=== PATIENT | female | born 1960 | race Caucasian/White ===

== ENCOUNTER 2019-01-02 09:43 | Inpatient (IN) | payer BC, SELFPAY ==
[2019-01-02 10:44] LABS: #Basophils 0.1 thou/uL (0.0-0.2); #Eosinphils 0.1 thou/uL (0.0-0.7); #Lymphocytes 2.5 thou/uL (1.20-3.40); #Monocytes 0.5 thou/uL (0.11-0.59); #Neutrophils 10.4 thou/uL (1.40-6.50); %Basophils 0.6 % (0.0-1.0); %Eosinophils 0.4 % (0.0-10.0); %Lymphocytes 18.3 % (21.0-51.0); %Monocytes 3.5 % (0.0-10.0); %Neutrophils 77.3 % (42.0-75.0); Hemoglobin 14.6 g/dL (12.0-16.0); Mean Corpuscular HGB CONC 33.6 g/dL (32.0-36.0); Mean Corpuscular Hemoglobin 31.7 pg (27.0-31.0); Mean Corpuscular Volume 94.5 fL (78.0-98.0); Mean Platelet Volume 7.6 fL (7.4-10.4); Platelet Count 389 thou/uL (130-400); RBC Distribution Width 11.8 % (11.5-14.5); Red Blood Cell (RBC) Count 4.62 mill/uL (4.20-5.40); White Blood Cell (WBC) Count 13.5 thou/uL (4.8-10.8)
--- NOTE | 2019-01-02 11:01 | CT ---
BRAIN CT WITHOUT IV CONTRAST: History: Dizziness, possible seizure, trip and fall one week ago. FINDINGS: No focal mass or midline shift. Right maxillary sinus focal mucosal disease. The mastoids are clear. No mass or midline shift. No intra or extraaxial hemorrhage. IMPRESSION: No significant acute intracranial process. Right maxillary sinus mucosal disease. POS: TPC
[2019-01-02 11:24] LABS: INR-International Normal Ratio 0.9; PTT 26.5 SEC (22.9-36.1); Prothrombin Time 11.9 SEC (12.0-14.7)
[2019-01-02 11:58] LABS: ALT (SGPT) 34 U/L (8-55); AST (SGOT) 55 U/L (5-34); Albumin 4.6 g/dL (3.5-5.0); Alkaline Phosphatase 104 U/L (40-150); Anion Gap 20 mmol/L (10-20); BUN (Urea Nitrogen) 16 mg/dL (9.8-20.1); Bilirubin, Total 0.5 mg/dL (0.2-1.2); Calc. Creatinine Clearance 0 mL/min (70-130); Calcium 9.3 mg/dL (7.8-10.44); Carbon Dioxide 19 mmol/L (22-29); Chloride 102 mmol/L (98-107); Estimated GFR-MDRD 73; Globulin 3.1 g/dL (2.4-3.5); Glucose 183 mg/dL (70-105); Potassium 4.6 mmol/L (3.5-5.1); Protein, Total 7.7 g/dL (6.0-8.3); Sodium 136 mmol/L (136-145)
[2019-01-02] MEDS ORDERED: Zolpidem Tartrate 5 MG TAB PO PRN (13:18)
[2019-01-02] MEDS ORDERED: Ondansetron ODT 4 MG TAB PO PRN (13:18)
[2019-01-02] MEDS ORDERED: Acetaminophen 325 MG TAB PO PRN (13:18)
[2019-01-02] MEDS ORDERED: Ondansetron PF 4 MG/2 ML Vial ONE (13:37)
--- NOTE | 2019-01-02 13:48 | RAD ---
FEXAM: Single view of the chest COMPARISON: None FINDINGS: Single view of the chest shows a normal sized cardiomediastinal silhouette. Atherosclerotic calcifications are seen in the aorta. There is no evidence of consolidation, mass, or pleural effusi on. The bones are unremarkable. Surgical clips are seen in the upper abdomen. IMPRESSION: No evidence of acute cardiopulmonary disease
--- NOTE | 2019-01-02 14:30 | HP ---
CHIEF COMPLAINT/HISTORY OF PRESENT ILLNESS: [facility] Call admission for Sound. The patient fell this morning on her face. She had a bloody nose and bloody lip. She cleaned herself up, went to work and it happened again. She was at school. 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 She left. She continued to have lightheaded and near passing out spell. She thought they were seizures. She called a co-worker. She was taken to the emergency room and found to have AV dissociation on electrocardiogram. No chest pain. No acute shortness of breath. No sweats. PAST MEDICAL HISTORY: Pertinent only for hypothyroidism, currently on levothyroxine 100 mcg a day. ALLERGIES: SHE IS ALLERGIC TO AMPICILLIN AND SULFA. PAST SURGICAL HISTORY: She had Hodgkin's at 17 years of age, had exploratory lap and upper mantle radiation at that time. FAMILY HISTORY: Father has glaucoma. There are multiple members of the family with hypertension and dyslipidemia. SOCIAL HISTORY: She is . Full code status. at the bedside, next of kin. is deaf, sign language only. She does not smoke. She drinks 4 glasses of white wine at night, chardonnay. REVIEW OF SYSTEMS: GENERAL: . No headaches, dizziness or fainting. EYES: No double vision, blurred vision, or flashing lights. EARS, NOSE, AND THROAT: She had no ear pain or drainage. She has nosebleed with a fall this morning. It is resolved. No trouble swallowing. CARDIAC: She states she has chest tightness most of the time for many years. No orthopnea or paroxysmal nocturnal dyspnea. RESPIRATIONS: No cough, wheezing, or asthma. GASTROINTESTINAL: No nausea, vomiting, diarrhea, constipation, or abdominal pain. GENITOURINARY: No hematuria, dysuria, or nocturia. She does have stress incontinence. MUSCULOSKELETAL: No pain or swelling in her arms or legs. NEUROLOGIC: No history of stroke, seizures, or focal weakness. PSYCHIATRIC: No anxiety or depression. SKIN: No bruising, bleeding, or rash. HEME/LYMPH: No tender or swollen lymph nodes in axilla, inguinal, or cervical area. PHYSICAL EXAMINATION: GENERAL: She is alert, pleasant, cooperative lady with a transcutaneous pacemaker on. VITAL SIGNS: Blood pressure ranges in the 130/50 range, pulse is 47 to 67, respirations 18, and room air sat 99%. HEAD, EYES, EARS, NOSE, AND THROAT: Reveals pupils equal, round, and reactive to light. Extraocular movements are intact. Sclerae are white. Tympanic membranes clear. Nose has dried blood in it. Mouth has abrasions on her upper and lower lip with dry blood. Mouth is wet. NECK: No jugular venous distention, adenopathy, or thyromegaly. CHEST: Clear to auscultation and percussion. HEART: Had irregular rate and rhythm. No murmurs and no gallops. ABDOMEN: Soft. Bowel sounds are normal. No hepatosplenomegaly. No masses. No rebound. EXTREMITIES: Reveal no cyanosis, clubbing, or edema. SKIN: Warm and dry except for the lesions on her mouth. PULSES: Carotid, radial, femoral, and dorsalis pedis pulses intact. LYMPHATIC SURVEY: No tender or swollen lymph nodes in axilla, inguinal, or cervical area. No petechial lesions. NEUROLOGIC: Cranial nerves 2 through 12 are intact. Deep tendon reflexes symmetric. STUDIES: EKG: AV dissociation with junctional escape, reviewed by me. CT scan of the brain was done for some reason. No acute intracranial abnormality. LABORATORY DATA: CBC: White count 13.5, hemoglobin 14.6, and platelet count 389,000. INR was 0.9. Comprehensive metabolic profile normal except for AST of 55, blood sugar 183, and CO2 of 19. Troponin 0.11. ADMITTING DIAGNOSES: 1. Syncope. 2. Complete atrioventricular dissociation. 3. Hypothyroidism. 4. Abrasions to lip. 5. Remote history of Hodgkin disease. PLAN: 1. Move to Critical Care Unit on transcutaneous pacemaker. 2. Dr. Doshi has been consulted for probable pacemaker placement. Echocardiogram has been ordered. Job ID: [id number] [facility]
[2019-01-02] MEDS ORDERED: Levofloxacin 500 mg/D5W 100 ml Premix Bag ONE (15:07)
[2019-01-02] MEDS ORDERED: Clindamycin/D5W 600 mg/50 ml Premix Bag ONE (15:53)
[2019-01-02] MEDS ORDERED: Midazolam HCl 2 mg/2 ml Vial ONE (16:01)
[2019-01-02] MEDS ORDERED: Vancomycin HCl 500 MG VIAL ONE (16:01)
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
--- NOTE | 2019-01-02 17:40 | RAD ---
FThere are degenerative chest one view: 01/02/2019 5:27 PM HISTORY: Status post pacemaker placement in 58-year-old female COMPARISON: 01/02/2019 1:39 PM FINDINGS: There is a new left subclavian dual lead pacemaker with lead tips overlying the expected locations of right atrial appendage and right ventricle. Cardiac mediastinal silhouette remains normal. No eviden ce of pneumothorax. Lungs remain clear. IMPRESSION: Interval pacemaker placement without pneumothorax.
[2019-01-02 18:00] VITALS: BMI 26.2
--- NOTE | 2019-01-02 18:22 | CCL ---
INDICATION FOR PROCEDURE: This is a 58-year-old female with syncopal episode this morning. Was found to have complete AV heart block with third degree block with bradycardia and syncopal episode. She was advised to undergo dual -chamber pacemaker insertion. This was performed today without difficulties or complications. She was implanted with a dual chamber pacemaker from [employer], an Advisa MRI compatible device with two screw-in leads. On in the atrium and one in the ventricle. The pacemaker was set with the upper r ate of 130 the lower rate was set at 60. There were no difficulties or complications encountered. ADDENDUM: The patient was given 1 mg of IV versed for conscious sedation for the procedure. Throughout the proc edure, she was monitored by an independent observer present for heart rate, blood pressure and O2 sat urations and all remained stable. CC: Brandt Clarke M.D.
[2019-01-02] MEDS ORDERED: Acetaminophen/Codeine 30-300mg Tablet PO PRN ×2 (21:15)
[2019-01-03 05:42] LABS: #Basophils 0.1 thou/uL (0.0-0.2); #Lymphocytes 2.9 thou/uL (1.20-3.40); #Monocytes 1.2 thou/uL (0.11-0.59); #Neutrophils 7.5 thou/uL (1.40-6.50); %Basophils 0.6 % (0.0-1.0); %Eosinophils 0.3 % (0.0-10.0); %Lymphocytes 24.8 % (21.0-51.0); %Monocytes 9.9 % (0.0-10.0); %Neutrophils 64.3 % (42.0-75.0); Hemoglobin 13.9 g/dL (12.0-16.0); Mean Corpuscular HGB CONC 33.6 g/dL (32.0-36.0); Mean Corpuscular Hemoglobin 32.3 pg (27.0-31.0); Mean Corpuscular Volume 95.9 fL (78.0-98.0); Mean Platelet Volume 7.6 fL (7.4-10.4); Platelet Count 331 thou/uL (130-400); RBC Distribution Width 11.6 % (11.5-14.5); White Blood Cell (WBC) Count 11.7 thou/uL (4.8-10.8)
[2019-01-03 05:54] LABS: Anion Gap 13 mmol/L (10-20); BUN (Urea Nitrogen) 16 mg/dL (9.8-20.1); Calc. Creatinine Clearance 79 mL/min (70-130); Calcium 9.6 mg/dL (7.8-10.44); Carbon Dioxide 26 mmol/L (22-29); Chloride 104 mmol/L (98-107); Estimated GFR-MDRD 76; Glucose 108 mg/dL (70-105); Potassium 4.2 mmol/L (3.5-5.1); Sodium 139 mmol/L (136-145)
--- NOTE | 2019-01-03 06:02 | PDOC.CTH ---
Cardiology Progress Note - Objective Vital Signs Temp Pulse Resp BP Pulse Ox 01/03/19 03:25 97.9 F 104 H 16 132/73 94 L 01/03/19 00:05 110 H 20 136/70 01/02/19 20:23 99.3 F 119 H 20 172/85 H 96 01/02/19 20:00 96 01/02/19 18:05 126 H 160/66 H Weight 139 lb 1.6 oz 01/01/19 01/02/19 01/03/19 06:59 06:59 06:59 Intake Total 400 Output Total 1350 Balance -950 - Physical Examination General/Neuro: alert & oriented x3, NAD Neck: carotid US brisk, no JVD present Lungs: CTA, unlabored respirations Heart: PMI normal, RRR Abdomen: NT/ND, soft Extremities: + femoral B - Labs Result Diagrams: 01/03/19 04:51 01/03/19 04:51 Troponin/CKMB Troponin I 0.011 ng/mL (< 0.028) 01/02/19 10:20 - Assessment/Plan 3rd degree AVB Severe Severe AI Moderate to severe MR Pt underwent successful pacer implant yesterday Doing well Pt. seen, CXR reviewed. Site looks good. CXR: no pneumo or hemothorax. Leads in good position. [email or web address]
[2019-01-03] MEDS ORDERED: Nitroglycerin 0.4 MG TAB (25 Tab Bottle) PO PRN (06:53)
[2019-01-03] MEDS ORDERED: hydrALAZINE 20 MG/ML VIAL SLOW IVP PRN (06:54)
[2019-01-03 07:45] LABS: Magnesium 2.5 mg/dL (1.6-2.6); Phosphorus 4.3 mg/dL (2.3-4.7)
[2019-01-03] MEDS ORDERED: Communication Order-Pharmacy FS SCH (09:45)
[2019-01-03] MEDS ORDERED: Mag-Al 1200 mg/1200 mg/30 ML UDCUP PO PRN (09:48)
[2019-01-03] MEDS: Sodium Chloride 0.9% 1,000 ML IV SCH ×2 (10:32→21:50)
[2019-01-03] MEDS: Eucerin (Mineral Oil/Petrolatum,White) 30 gm Jar TOP SCH ×2 (10:39→21:50)
[2019-01-03] MEDS ORDERED: diphenhydrAMINE 25 MG CAP PO PRN (14:00)
[2019-01-03] MEDS: predniSONE 20 MG TAB PO SCH ×2 (14:48→21:49)
--- NOTE | 2019-01-03 17:23 | CON ---
DATE OF CONSULTATION: SUBJECTIVE: Ms. Hickman is doing well. She has no recurrent episodes of syncope. Prior to pacemaker implantation, she had 6 episodes of syncope. These have resolved. Chest x-ray did not suggest a pneumothorax. OBJECTIVE: VITAL SIGNS: Blood pressure 146/80, pulse 98, temperature 98.3. LUNGS: Clear to auscultation. HEART: Regular rate and rhythm with 2/6 systolic ejection murmur. ABDOMEN: Soft, nontender, and nondistended. EXTREMITIES: No edema. IMPRESSION: 1. Sick sinus syndrome, status post pacemaker. 2. Severe aortic stenosis. 3. Severe aortic insufficiency. 4. Moderately efvwrg-fq-mnnqrx mitral regurgitation. RECOMMENDATIONS: Certainly difficult case with Ms. Hickman. I did discuss the case with the physician overseeing the study performed 40 years ago. She received mantle radiation, which is a fairly prohibitive risk for proceeding with sternotomy. Information will be sent to me discussing the morbidity and mortality of any type of surgery. There is poor wound healing present. Options appear limited. TAVR seems to be the only viable option. She did state she had significant shortness of breath prior to this episode. This occurred with ambulation. She has symptomatic aortic stenosis. I would therefore recommend coronary angiography and possible PCI. Therefore, I discussed coronary angiography with Ms. Hickman. Risks included, but not limited to the following: , stroke, HI, need for emergency surgery, loss of limb, bleeding, and infection. We will also proceed with a right heart catheterization to assess the aortic valve. Will likely need transfer to [facility] in [place]. She will be premedicated for contrast allergy. Job ID: [id number]
--- NOTE | 2019-01-03 19:36 | PDOC.PN ---
- Subjective Encounter Start Date: 01/03/19 Encounter Start Time: 10:30 Patient seen and examined for SSS. No CP. No new complaints. No overnight events - Objective Resuscitation Status - Order Detail: 01/02/19 13:14 Resuscitation Status Routine Resuscitation Status: FULL: Full Resuscitation MAR Reviewed: Yes Vital Signs & Weight: Vital Signs (12 hours) Temp Pulse Pulse Pulse Resp BP BP 01/03/19 16:00 97.8 F 101 H 16 01/03/19 12:31 98.5 F 100 18 01/03/19 11:42 98 114 H 167/75 H 168/80 H 01/03/19 08:00 98.3 F 98 18 BP BP Pulse Ox Pulse Ox Pulse Ox 01/03/19 16:00 133/62 01/03/19 12:31 146/80 H 01/03/19 11:42 97 97 01/03/19 08:00 162/76 H 94 L Weight Weight 139 lb 1.6 oz I&O: 01/02/19 01/03/19 01/04/19 06:59 06:59 06:59 Intake Total 400 Output Total 1350 Balance -950 Result Diagrams: 01/03/19 04:51 01/03/19 04:51 EKG Reviewed by me: Yes (Tele SR) Phys Exam - Physical Examination Constitutional: NAD Respiratory: no wheezing, no rhonchi Cardiovascular: RRR, no rub Gastrointestinal: soft, non-tender, positive bowel sounds Musculoskeletal: no edema Dx/Plan - Plan DVT proph w/SCDs 1. Syncope due to 3rd degree AV block s/p Pacemaker 01/02 2. Severe /Severe AI 3. Moderate to severe MR 4. Hypothyroidism 5. CKD2 PLAN: Await Cath Resume Levothyroxine Cont other meds as below Cont Cardiac Rehab Review of Systems - Review of Systems Cardiovascular: negative: chest pain, palpitations, orthopnea, paroxysmal nocturnal dyspnea, edema, light headedness, other Gastrointestinal: negative: Nausea, Vomiting, Abdominal Pain, Diarrhea, Constipation, Melena, Hematochezia, Other - Medications/Allergies Allergies/Adverse Reactions: Allergies Allergy/AdvReac Type Severity Reaction Status Date / Time ampicillin Allergy Verified 01/02/19 17:34 Iodinated Contrast- Oral and Allergy Verified 01/02/19 17:34 IV Dye Penicillins Allergy Verified 03/26/19 17:34 Medications: Current Medications Acetaminophen (Tylenol) 650 mg PO Q4H PRN PRN Reason: Headache/Fever/Mild Pain (1-3) Acetaminophen/Codeine Phosphate (Tylenol #3) 1 tab PO Q4H PRN PRN Reason: Mild Pain (1-3) Acetaminophen/Codeine Phosphate (Tylenol #3) 2 tab PO Q4H PRN PRN Reason: Moderate Pain (4-6) Last Admin: 01/02/19 22:56 Dose: 2 tab Al Hydroxide/Mg Hydroxide (Maalox) 30 ml PO Q6H PRN PRN Reason: Heartburn or Indigestion Diphenhydramine HCl (Benadryl) 25 mg PO Q6H PRN PRN Reason: Itching & Insomnia Famotidine (Pepcid) 20 mg PO BID YVES Hydralazine HCl (Apresoline) 10 mg SLOW IVP Q4H PRN PRN Reason: SBP Greater Than 180 Sodium Chloride (Normal Saline 0.9%) 1,000 mls @ 100 mls/hr IV .Q10H [facility] Last Admin: 01/03/19 10:32 Dose: 1,000 mls Mineral Oil/White Petrolatum (Eucerin Cream) 0 gm TOP TID [facility] Last Admin: 01/03/19 10:39 Dose: 1 applic Miscellaneous Information (Communication Order-Pharmacy) 0 each FS ONE [facility] Stop: 01/03/19 21:00 Montelukast Sodium (Singulair) 10 mg PO QPM [facility] Nitroglycerin (Nitrostat) 0.4 mg PO Q5MIN PRN PRN Reason: Chest Pain Ondansetron HCl (Zofran Odt) 4 mg PO Q6H PRN PRN Reason: Nausea/Vomiting Prednisone (Prednisone) 30 mg PO Q6H [facility] Last Admin: 01/03/19 14:48 Dose: 30 mg Sodium Chloride (Flush - Normal Saline) 10 ml IVF PRN PRN PRN Reason: Saline Flush Zolpidem Tartrate (Ambien) 5 mg PO HSPRN PRN PRN Reason: Insomnia
[2019-01-03] MEDS ORDERED: Montelukast Sodium 10 mg Tablet PO SCH (21:00)
[2019-01-03] MEDS: Famotidine 20 MG TAB PO SCH (21:50)
[2019-01-04] MEDS: predniSONE 20 MG TAB PO SCH ×3 (02:55→14:24)
[2019-01-04] MEDS: Sodium Chloride 0.9% 1,000 ML IV SCH (05:38)
[2019-01-04] MEDS ORDERED: Levothyroxine Sodium 100 MCG TAB PO SCH (06:00)
[2019-01-04] MEDS ORDERED: Hydrocortisone Sod Succ/PF 100 mg/2 ml Vial ONE (07:38)
[2019-01-04] MEDS ORDERED: hydrALAZINE 20 MG/ML VIAL ONE (07:50)
[2019-01-04] MEDS ORDERED: Nitroglycerin 4.9 GM Bottle ONE (07:51)
[2019-01-04] MEDS ORDERED: Nitroglycerin 100MG/250ML BOT 250 ML ONE (07:51)
[2019-01-04] MEDS ORDERED: Midazolam HCl 2 mg/2 ml Vial ONE (07:52)
[2019-01-04] MEDS ORDERED: Fentanyl 100 MCG/2 ML VIAL ONE (07:53)
[2019-01-04] MEDS ORDERED: Sodium Chloride 0.9% 200 ML IV PRN (08:40)
[2019-01-04] MEDS ORDERED: Nitroglycerin 0.4 MG TAB (25 Tab Bottle) SL PRN (08:40)
[2019-01-04] MEDS ORDERED: Acetaminophen/Codeine 30-300mg Tablet PO PRN ×2 (08:40)
[2019-01-04] MEDS ORDERED: Sodium Chloride 0.9% 1,000 ML IV SCH (08:45)
[2019-01-04] MEDS: Eucerin (Mineral Oil/Petrolatum,White) 30 gm Jar TOP SCH ×2 (09:45→14:25)
[2019-01-04] MEDS: Famotidine 20 MG TAB PO SCH (09:45)
[2019-01-04] MEDS ORDERED: Aspirin 81 mg Enteric Coated Tablet PO SCH (09:45)
[2019-01-04 15:23] VITALS: BP 125/58; TEMP 98
--- NOTE | 2019-01-04 17:50 | DIS ---
DATE OF ADMISSION: 01/02/2019 DATE OF DISCHARGE: 01/04/2019 DISCHARGE DISPOSITION: Home. FOLLOWUP: 1. Follow up with primary care physician at [facility] in 1 week. 2. Follow up with Cardiology Dr. Doshi and Dr. Beckford as scheduled. DISCHARGE MEDICATIONS: 1. Levothyroxine 100 mcg daily. 2. Tylenol as needed. 3. Aspirin 81 mg daily. ALLERGIES: THE PATIENT IS ALLERGIC TO PENICILLIN, IODINE, AND STATINS. THE PATIENT WAS SEEN ON THE DAY OF DISCHARGE. DENIES ANY NEW COMPLAINTS. NO CHEST PAIN, SHORTNESS OF BREATH, OR PALPITATIONS. BRIEF HOSPITAL COURSE: The patient is a 58-year-old female, who presented to the emergency room after an episode of fall. Please refer to the history and physical for further details. The patient was admitted to the hospital with a diagnosis of syncope. She was found to have third-degree AV block requiring emergent pacemaker placement. She also had some superficial injury on the face due to fall. The patient had an echocardiogram that showed ejection fraction of 55% to 60% with severe mitral regurgitation, severe aortic regurgitation, severe tricuspid regurgitation, and severe aortic stenosis. The patient was seen by Cardiology, Dr. Beckford. Cardiac cath was performed earlier today by Dr. Beckford that showed 20% stenosis in the proximal LAD and 30% stenosis in the second diagonal. She was found to have a severe aortic stenosis with aortic valve area of 0.59. An attempt was made to transfer her to [facility] in [place] for TAVR; however, the patient has declined. Per Cardiology recommendation, the patient will be discharged home and will follow up with Cardiology as an outpatient. The patient understands the current plan of care. Fall precaution was emphasized. She will follow up with Dr. Doshi, Cardiology for pacemaker check next week. FINAL DIAGNOSES: 1. Syncope secondary to third-degree AV block requiring emergent pacemaker placement. 2. Severe aortic stenosis, severe aortic regurgitation, severe mitral regurgitation, and severe tricuspid regurgitation. 3. Hypothyroidism. 4. Chronic kidney disease, stage 2. 5. Facial injuries secondary to the fall. 6. Iodine allergy. DIAGNOSTIC TESTS: CT scan of the brain was negative for acute findings. It showed right maxillary sinus mucosal disease. Chest x-ray was negative for infiltrate. PLAN: Plan was discussed with the patient in detail, she stated understanding. Job ID: [id number]
--- NOTE | 2019-01-04 18:08 | PRG ---
DATE OF SERVICE: 01/04/2019 SUBJECTIVE: Ms. Hickman is doing well this afternoon. No current complaints. No chest pain, pressure, or shortness of breath. She recently underwent a right and left heart catheterization with no significant coronary artery disease. She did have severe aortic stenosis with a valve area of 0.6. Plan was to transfer the patient to [facility]. The patient is not eligible for bypass surgery given previous history of mantle radiation to her chest from lymphoma. I did have an accepting physician after initiating the transfer, she was then turned down for transfer by [facility]. From a symptom standpoint, Ms. Hickman again is currently not having any issues. She has had some shortness of breath with moderate exertion in the past with no chest pain or pressure noted. We will try and set her up as an outpatient for a potential TAVR. She does appear to be stable for transfer with no acute findings. The pacemaker was recently interrogated showing normal function. Job ID: [id number]
[2019-01-05] MEDS ORDERED: Aspirin 81 mg Enteric Coated Tablet PO SCH (09:00)
== END 2019-01-04 18:30 | disposition home or self-care (01) | DRG 244 ==
LOC: ERS 09:43 → 2NO 17:11
PROVIDERS: ADMIT Internal Medicine; ATTEND Internal Medicine Cardiovascular Disease
PROC: 0JH606Z Insertion of Pacemaker, Dual Chamber into Chest Subcutaneous Tissue and Fascia, Open Approach (ICD-10-PCS; principal; 2019-01-02)
PROC: 02H73JZ Insertion of Pacemaker Lead into Left Atrium, Percutaneous Approach (ICD-10-PCS; 2019-01-02)
PROC: 02HL3JZ Insertion of Pacemaker Lead into Left Ventricle, Percutaneous Approach (ICD-10-PCS; 2019-01-02)
PROC: 4A023N7 Measurement of Cardiac Sampling and Pressure, Left Heart, Percutaneous Approach (ICD-10-PCS; 2019-01-02)
PROC: B2111ZZ Fluoroscopy of Multiple Coronary Arteries using Low Osmolar Contrast (ICD-10-PCS; 2019-01-02)
PROC: B2151ZZ Fluoroscopy of Left Heart using Low Osmolar Contrast (ICD-10-PCS; 2019-01-02)
DX: I44.2 Atrioventricular block, complete (principal); E03.9 Hypothyroidism, unspecified; S00.511A Abrasion of lip, initial encounter; I35.0 Nonrheumatic aortic (valve) stenosis; I34.0 Nonrheumatic mitral (valve) insufficiency; I49.5 Sick sinus syndrome; N18.2 Chronic kidney disease, stage 2 (mild); W19.XXXA Unspecified fall, initial encounter
CPT/HCPCS: 33208; 36415; 70450; 71045; 76942; 80048; 80053; 83735; 84100; 84443; 84484; 85025; 85610; 85730; 93005; 93010; 93306; 93460; 93567; 93798; 94760; 96374; 99152; 99153; C1769; C1785; C1898; J0360; J1644; J1720; J1956; J2250; J2405; J3010; J3370; J3490; Q0163

== ENCOUNTER 2022-04-18 23:20 | Inpatient (IN) | payer OTHER, SELFPAY ==
[2022-04-18] MEDS ORDERED: Ondansetron PF 4 MG/2 ML Vial ONE (23:33)
[2022-04-18] MEDS ORDERED: Fentanyl 100 MCG/2 ML VIAL ONE ×2 (23:33→23:37)
[2022-04-18] MEDS ORDERED: Propofol 1,000 MG/100 ML VIAL IV ONE (23:42)
[2022-04-18] MEDS ORDERED: Fentanyl CADD 100 ML IV SCH (23:45)
[2022-04-18 23:48] LABS: Hemoglobin 15.3 g/dL (12.0-16.0); Mean Corpuscular HGB CONC 32.1 g/dL (32.0-36.0); Mean Corpuscular Hemoglobin 31.1 pg (27.0-31.0); Mean Corpuscular Volume 97.1 fL (78.0-98.0); RBC Distribution Width 12.9 % (11.5-14.5); White Blood Cell (WBC) Count 17.9 thou/uL (4.8-10.8)
[2022-04-18 23:54] LABS: Actual Bicarbonate (HCO3a) 13.8 mEq/L (22-28); Base Excess (BEa) -14.6 mEq/L (-2.0 to +3.0); CO2 Tension 40.9 mmHg (35.0-45.0); Carboxyhemoglobin (COHb) 0.3 gm% (0.0-3.0); Hemoglobin (Hb) 15.1 g/dL (12.0-16.0); O2 Tension (PaO2), arterial 106.4 mmHg (> 80.0); Potassium - ABG Lab 4.71 mmol/L (3.70-5.30)
[2022-04-19 00:02] LABS: #Basophils 0.1 thou/uL (0.0-0.2); #Eosinphils 0.2 thou/uL (0.0-0.7); #Lymphocytes 5.4 thou/uL (1.20-3.40); #Monocytes 0.8 thou/uL (0.11-0.59); #Neutrophils 11.5 thou/uL (1.40-6.50); %Basophils 0.5 % (0.0-1.0); %Eosinophils 0.9 % (0.0-10.0); %Lymphocytes 30.2 % (21.0-51.0); %Monocytes 4.2 % (0.0-10.0); %Neutrophils 64.2 % (42.0-75.0); Elliptocytes SLIGHT = 2-5 cells (100X) (0-1/hpf); MDiff Complete? YES; Mean Platelet Volume 9.9 fL (7.4-10.4); Platelet Count 53 thou/uL (130-400); Platelet Morphology Comment Appears Decreased; Tear Drops SLIGHT = 2-5 cells (100X) (0-1/hpf)
[2022-04-19 00:03] LABS: ALV-art Gradient 555.475 mmHg (0-20); Puncture Site RBA; pH, Arterial 7.15 (7.35-7.45)
[2022-04-19 00:09] LABS: ALT (SGPT) 13 U/L (8-55); AST (SGOT) 21 U/L (5-34); Albumin 3.9 g/dL (3.5-5.0); Alkaline Phosphatase 108 U/L (40-110); Anion Gap 18 mmol/L (10-20); BUN (Urea Nitrogen) 18 mg/dL (9.8-20.1); Bilirubin, Total 0.3 mg/dL (0.2-1.2); Calc. Creatinine Clearance 0 mL/min (70-130); Calcium 9.2 mg/dL (7.8-10.44); Carbon Dioxide 17 mmol/L (22-29); Chloride 105 mmol/L (98-107); Estimated GFR 77; Globulin 3.6 g/dL (2.4-3.5); Glucose 339 mg/dL (70-105); Magnesium 2.2 mg/dL (1.6-2.6); Potassium 4.6 mmol/L (3.5-5.1); Protein, Total 7.5 g/dL (6.0-8.3); Sodium 135 mmol/L (136-145)
[2022-04-19 00:13] LABS: Bacteria/HPF None Seen HPF (None Seen); Bilirubin Negative (Negative); Blood, Urine Negative (Negative); Clarity Clear (Clear); Glucose, Urine (Dipstick) 30 mg/dL (Negative); Ketone, Urine Negative (Negative); Leukocyte Negative Leu/uL (Negative); Nitrite Negative (Negative); Protein, Urine (Dipstick) 50 mg/dL (Neg-Trace); RBC/HPF 0-3 HPF (0-3); Specific Gravity, Urine 1.025 (1.002-1.036); Squamous Epithelial 0-3 HPF (0-3); Urobilinogen Normal mg/dL (Less than 2); WBC/HPF 0-3 HPF (0-3)
[2022-04-19] MEDS ORDERED: Vancomycin 1 GM/200 ML BAG ONE (00:19)
[2022-04-19] MEDS ORDERED: Aztreonam 1 GM in Sodium Chloride 0.9% 100 ML IVPB SCH ×2 (00:30→10:00)
[2022-04-19 00:31] LABS: CKMB 1.1 ng/mL (0-6.6)
[2022-04-19 00:38] LABS: SARS-CoV-2 NAA Rapid Test Not Detected (NotDetected)
[2022-04-19] MEDS ORDERED: Norepinephrine 8 MG/0.9% NS 250 ML ONE (02:07)
[2022-04-19 02:46] LABS: INR-International Normal Ratio 1.7; PTT 33.6 sec (22.9-36.1); Prothrombin Time 20.3 sec (12.0-14.7)
[2022-04-19] MEDS ORDERED: Midazolam HCl 2 mg/2 ml Vial SLOW IVP PRN (02:51)
[2022-04-19] MEDS ORDERED: Fentanyl CADD 100 ML IV SCH (03:00)
[2022-04-19] MEDS ORDERED: Fentanyl BOLUS 250 ML IVPB PRN (03:00)
[2022-04-19] MEDS ORDERED: Propofol BOLUS 1,000 MG/100 ML VIAL IV PRN (03:00)
[2022-04-19] MEDS ORDERED: DISCONTINUE PREVIOUS NARCOTIC PAIN MEDICATIONS AND BENZODIAZEPINES FS SCH (03:00)
[2022-04-19] MEDS ORDERED: Morphine 2 MG/ML VIAL SLOW IVP PRN (03:00)
[2022-04-19 03:01] LABS: Lactic Acid 2.4 mmol/L (0.5-2.2)
[2022-04-19] MEDS ORDERED: Ondansetron PF 4 MG/2 ML Vial IVP PRN (03:26)
[2022-04-19] MEDS ORDERED: Acetaminophen 325 MG TAB PO PRN (03:26)
[2022-04-19] MEDS ORDERED: VANC IVPB PRN (03:38)
[2022-04-19 03:39] LABS: Troponin I 1.822 ng/mL (< 0.028)
[2022-04-19] MEDS ORDERED: Pantoprazole 40 MG VIAL ONE (03:57)
[2022-04-19 06:00] LABS: ALT (SGPT) 21 U/L (8-55); AST (SGOT) 75 U/L (5-34); Albumin 3.9 g/dL (3.5-5.0); Alkaline Phosphatase 112 U/L (40-110); Anion Gap 15 mmol/L (10-20); BUN (Urea Nitrogen) 17 mg/dL (9.8-20.1); Bilirubin, Total 0.3 mg/dL (0.2-1.2); Calc. Creatinine Clearance 0 mL/min (70-130); Calcium 8.5 mg/dL (7.8-10.44); Carbon Dioxide 21 mmol/L (22-29); Chloride 107 mmol/L (98-107); Estimated GFR 86; Globulin 3.1 g/dL (2.4-3.5); Glucose 201 mg/dL (70-105); Potassium 4.2 mmol/L (3.5-5.1); Sodium 139 mmol/L (136-145)
[2022-04-19] MEDS ORDERED: Meropenem 1 GM in Sodium Chloride 0.9% 100 ML IVPB SCH ×2 (06:00→14:00)
[2022-04-19 06:15] LABS: Troponin I 6.151 ng/mL (< 0.028)
[2022-04-19 06:18] LABS: #Lymphocytes 1.7 thou/uL (1.20-3.40); #Neutrophils 11.9 thou/uL (1.40-6.50); %Basophils 0.1 % (0.0-1.0); %Eosinophils 0.1 % (0.0-10.0); %Lymphocytes 11.8 % (21.0-51.0); %Monocytes 6.7 % (0.0-10.0); %Neutrophils 81.3 % (42.0-75.0); Hemoglobin 13.6 g/dL (12.0-16.0); Mean Corpuscular HGB CONC 31.9 g/dL (32.0-36.0); Mean Corpuscular Hemoglobin 30.1 pg (27.0-31.0); Mean Corpuscular Volume 94.4 fL (78.0-98.0); Mean Platelet Volume 7.4 fL (7.4-10.4); Platelet Count 460 thou/uL (130-400); RBC Distribution Width 12.6 % (11.5-14.5); Red Blood Cell (RBC) Count 4.51 mill/uL (4.20-5.40); White Blood Cell (WBC) Count 14.7 thou/uL (4.8-10.8)
[2022-04-19 06:23] VITALS: BMI 23.6
[2022-04-19] MEDS ORDERED: Norepinephrine 8 MG/0.9% NS 250 ML IVPB SCH (06:30)
[2022-04-19] MEDS ORDERED: Aspirin 325 mg Enteric Coated Tablet PO SCH (06:30)
[2022-04-19] MEDS ORDERED: Heparin 10,000 UNITS/ 10 ML VIAL SLOW IVP SCH (06:30)
[2022-04-19] MEDS ORDERED: Heparin 25,000 units/D5W 500 ML IVPB SCH (06:30)
[2022-04-19] MEDS ORDERED: Aspirin 325 MG TAB PO SCH (06:45)
[2022-04-19 07:09] LABS: Actual Bicarbonate (HCO3a) 17.1 mEq/L (22-28); Calcium, Ionized (arterial) 1.14 mmol/L (1.12-1.30); O2 Tension (PaO2), arterial 77.4 mmHg (> 80.0); Potassium - ABG Lab 3.79 mmol/L (3.70-5.30); pH, Arterial 7.45 (7.35-7.45)
[2022-04-19 07:10] LABS: ALV-art Gradient 176.175 mmHg (0-20); CO2 Tension 25.3 mmHg (35.0-45.0); Puncture Site RBA
[2022-04-19 07:37] VITALS: BP 137/71
[2022-04-19 07:55] LABS: Strep pneumo Urine Ag NEGATIVE (NEGATIVE)
[2022-04-19 07:56] LABS: Legionella Urinary Ag Negative (Negative)
[2022-04-19] MEDS ORDERED: DOBUTamine 500 mg/250 ml 250 ML IVPB SCH (08:30)
[2022-04-19] MEDS ORDERED: Hydrocortisone Sod Succ/PF 100 mg/2 ml Vial IVP SCH (09:00)
[2022-04-19] MEDS: Propofol 1,000 MG/100 ML VIAL IV PRN ×2 (09:00→13:52)
[2022-04-19] MEDS ORDERED: Pantoprazole 40 MG VIAL IVP SCH (09:00)
[2022-04-19 09:25] LABS: Troponin I 14.746 ng/mL (< 0.028)
[2022-04-19] MEDS ORDERED: Heparin 10,000 UNITS/ 10 ML VIAL ONE (10:16)
[2022-04-19] MEDS ORDERED: Adenosine 6 MG/2 ML VIAL ONE (10:16)
[2022-04-19] MEDS ORDERED: Lidocaine 1% (PF) 30 ML VIAL ONE (10:16)
[2022-04-19] MEDS ORDERED: Nitroglycerin 100MG/250ML BOT 250 ML ONE (10:16)
[2022-04-19] MEDS ORDERED: Verapamil 5 MG/2 ML VIAL ONE (10:16)
[2022-04-19] MEDS ORDERED: Fentanyl 100 MCG/2 ML VIAL ONE (11:10)
[2022-04-19] MEDS ORDERED: Vancomycin 1 GM in Premix Bag 1 BAG IVPB SCH ×2 (12:00→13:00)
[2022-04-19 13:28] LABS: PTT 230.2 sec (22.9-36.1)
[2022-04-19 14:20] VITALS: TEMP 98
[2022-04-19] MEDS ORDERED: Iopamidol 370 76% 100 ML VIAL ONE (14:38)
== END 2022-04-19 15:00 | disposition short-term general hospital (02) | DRG 871 ==
LOC: ERS 23:20 → CCU 04-19 02:42
PROVIDERS: ADMIT Family Medicine; ATTEND Family Medicine
PROC: B2111ZZ Fluoroscopy of Multiple Coronary Arteries using Low Osmolar Contrast (ICD-10-PCS; principal; 2022-04-19)
PROC: 3E033XZ Introduction of Vasopressor into Peripheral Vein, Percutaneous Approach (ICD-10-PCS; 2022-04-19)
PROC: 3E03329 Introduction of Other Anti-infective into Peripheral Vein, Percutaneous Approach (ICD-10-PCS; 2022-04-19)
PROC: 0D9670Z Drainage of Stomach with Drainage Device, Via Natural or Artificial Opening (ICD-10-PCS; 2022-04-19)
PROC: 0BH17EZ Insertion of Endotracheal Airway into Trachea, Via Natural or Artificial Opening (ICD-10-PCS; 2022-04-19)
PROC: 5A1935Z Respiratory Ventilation, Less than 24 Consecutive Hours (ICD-10-PCS; 2022-04-19)
DX: A41.9 Sepsis, unspecified organism (principal); R65.21 Severe sepsis with septic shock; J96.01 Acute respiratory failure with hypoxia; J18.9 Pneumonia, unspecified organism; I25.110 Atherosclerotic heart disease of native coronary artery with unstable angina pectoris; Z20.822 Contact with and (suspected) exposure to COVID-19; D69.6 Thrombocytopenia, unspecified; E03.9 Hypothyroidism, unspecified; Z88.0 Allergy status to penicillin; Z88.2 Allergy status to sulfonamides; Z91.041 Radiographic dye allergy status; Z88.8 Allergy status to other drugs, medicaments and biological substances; Z95.0 Presence of cardiac pacemaker; Z79.890 Hormone replacement therapy; Z79.82 Long term (current) use of aspirin; Z79.899 Other long term (current) drug therapy; Z79.01 Long term (current) use of anticoagulants; Z78.1 Physical restraint status
CPT/HCPCS: 36415; 36416; 36600; 71045; 74176; 80053; 81003; 81015; 82553; 82805; 83605; 83690; 83735; 83880; 84484; 85025; 85347; 85610; 85730; 86850; 86900; 86901; 87040; 87086; 87449; 87804; 87899; 93005; 93306; 93454; 94002; 94003; C9113; J0153; J1250; J1644; J1720; J2001; J2185; J2270; J2405; J2704; J3010; J3370; J3490; Q9967; U0002

== ENCOUNTER 2022-10-20 12:07 | Outpatient (CLI) | payer BC | END 2022-10-20 12:08 | disposition home or self-care (01) | LOC: ULT 12:07 | PROVIDERS: ATTEND Internal Medicine Cardiovascular Disease | DX: I10 Essential (primary) hypertension (principal); R94.31 Abnormal electrocardiogram [ECG] [EKG]; I48.0 Paroxysmal atrial fibrillation; I08.3 Combined rheumatic disorders of mitral, aortic and tricuspid valves; Z95.0 Presence of cardiac pacemaker | CPT/HCPCS: 93306 ==

== ENCOUNTER 2023-06-22 12:53 | Outpatient (CLI) | payer BC | END 2023-06-22 12:54 | disposition home or self-care (01) | LOC: ULT 12:53 | PROVIDERS: ATTEND Internal Medicine Cardiovascular Disease | DX: I10 Essential (primary) hypertension (principal); I48.0 Paroxysmal atrial fibrillation; I25.10 Atherosclerotic heart disease of native coronary artery without angina pectoris; I50.32 Chronic diastolic (congestive) heart failure | CPT/HCPCS: 93306 ==